=== PATIENT | female | born 1970 | race Caucasian/White ===

== ENCOUNTER → 2023-10-08 09:23 | Outpatient (REF) | payer OTHER, SELFPAY ==
[2023-10-08 20:11] LABS: Rubella Positive
[2023-10-08 21:28] LABS: Hepatitis B Surface Antibody Indeterminate
== END ==
LOC: OHS 09:23
PROVIDERS: ATTENDING PHYSICIAN Nurse Practitioner Family
DX: Z23 Encounter for immunization (principal)
CPT/HCPCS: 36415; 86480; 86706; 86735; 86762; 86765; 86787

== ENCOUNTER → 2024-01-28 16:24 | Outpatient (REF) | payer BC, OTHER, SELFPAY ==
[2024-01-28 19:54] LABS: Hepatitis B Surface Antibody Positive
== END ==
LOC: REG 16:24
PROVIDERS: ATTENDING PHYSICIAN Nurse Practitioner Family
DX: Z23 Encounter for immunization (principal)
CPT/HCPCS: 36415; 86706

== ENCOUNTER → 2024-04-20 06:51 | Outpatient (REF) | payer BC, SELFPAY | LOC: WDC 06:51 | PROVIDERS: ATTENDING PHYSICIAN Student in an Organized Health Care Education/Training Program | DX: Z12.31 Encounter for screening mammogram for malignant neoplasm of breast (principal) | CPT/HCPCS: 77063; 77067 ==

== ENCOUNTER → 2024-05-04 08:37 | Outpatient (REF) | payer BC, SELFPAY | LOC: WDC 08:37 | PROVIDERS: ATTENDING PHYSICIAN Student in an Organized Health Care Education/Training Program | DX: R92.8 Other abnormal and inconclusive findings on diagnostic imaging of breast (principal) | CPT/HCPCS: 76642 ==

== ENCOUNTER → 2024-07-22 14:56 | Outpatient (REF) | payer BC, SELFPAY | LOC: WDC 14:56 | PROVIDERS: ATTENDING PHYSICIAN Student in an Organized Health Care Education/Training Program; REFERRING PHYSICIAN Nurse Practitioner Women's Health | DX: R92.2 Inconclusive mammogram (principal); D24.1 Benign neoplasm of right breast | CPT/HCPCS: 76641 ==

== ENCOUNTER → 2024-10-25 16:43 | Outpatient (REF) | payer BC, SELFPAY ==
[2024-10-26 15:49] LABS: tTG IgG Antibody 9.8 EU/ml (0-19)
[2024-10-26 23:44] LABS: IgA 139 mg/dl (70-400)
[2024-10-28 00:33] LABS: H. pylori Breath Test Negative (Negative)
== END ==
LOC: REG 16:43
PROVIDERS: ATTENDING PHYSICIAN Internal Medicine Gastroenterology; FAMILY PHYSICIAN Student in an Organized Health Care Education/Training Program
DX: R19.4 Change in bowel habit (principal)
CPT/HCPCS: 36415; 82784; 83013; 83516; 86231

== ENCOUNTER → 2024-11-30 16:46 | Outpatient (REF) | payer BC, SELFPAY ==
[2024-11-30 17:08] LABS: Hematocrit 41.2 % (37.0-47.0); Hemoglobin 13.8 g/dL (12.0-16.0); Mean Corp Hgb Conc. 33.5 g/dL (33.0-37.0); Mean Corpuscular Volume 94.1 fL (81.0-99.0); Nucleated Red Blood Cells % 0 %; Platelet Count 221 10^3/uL (130-400); Red Cell Dist. Width 12.5 % (11.5-14.5)
[2024-11-30 17:12] LABS: Urine Character Clear (Clear)
[2024-11-30 17:30] LABS: ALT (SGPT) 26 U/L (0-35); AST (SGOT) 28 U/L (14-36); Albumin 4.8 g/dl (3.5-5.0); Alkaline Phosphatase 85 U/L (38-126); Blood Urea Nitrogen 20 mg/dl (7-17); Calcium 9.9 mg/dl (8.4-10.2); Carbon Dioxide 31 mmol/L (22-30); Chloride 101 mmol/L (98-107); Glucose 91 mg/dl (70-99); Potassium 4.3 mmol/L (3.5-5.1); Sodium 136 mmol/L (135-145); Total Protein 7.4 g/dl (6.3-8.2); eGFR > 60.00
[2024-11-30 17:31] LABS: Urine Red Blood Cell 0-2 /HPF (0-2); Urine Squamous Cell >30 /LPF (Few)
[2024-12-03 09:00] LABS: ANA, IgG Reflex to HEp-2 None Detected (None Detected)
== END ==
LOC: REG 16:46
PROVIDERS: ATTENDING PHYSICIAN Dermatology; FAMILY PHYSICIAN Student in an Organized Health Care Education/Training Program
DX: L56.8 Other specified acute skin changes due to ultraviolet radiation (principal); L29.9 Pruritus, unspecified
CPT/HCPCS: 36415; 80053; 81003; 81015; 85025; 86038

== ENCOUNTER 2025-03-20 06:25 | Day surgery (SDC) | payer BC, SELFPAY | END 2025-03-20 12:43 | disposition home or self-care (01) | LOC: GI 06:25 | PROVIDERS: ATTENDING PHYSICIAN Internal Medicine Gastroenterology; FAMILY PHYSICIAN Student in an Organized Health Care Education/Training Program | DX: Z12.11 Encounter for screening for malignant neoplasm of colon (principal); D12.2 Benign neoplasm of ascending colon; K63.89 Other specified diseases of intestine | CPT/HCPCS: 45385; 45380; 88305 ==

== ENCOUNTER → 2025-04-24 16:37 | Outpatient (REF) | payer BC, SELFPAY | LOC: WDC 16:37 | PROVIDERS: ATTENDING PHYSICIAN Obstetrics & Gynecology; FAMILY PHYSICIAN Student in an Organized Health Care Education/Training Program | DX: Z12.31 Encounter for screening mammogram for malignant neoplasm of breast (principal) | CPT/HCPCS: 77063; 77067 ==